=== PATIENT | female | born 1985 | race Two or more races ===

== ENCOUNTER 2020-09-22 11:35 | Inpatient (IN) | payer OTHER ==
[2020-09-22 16:08] LABS: BASO % 0.4 % (0-2.0); EOS % 1.2 % (0-4.5); HEMOGLOBIN 13.2 GM/dL (10.7-15.3); LYMPH % 22.6 % (8-40); MCH 28.3 pg (25.7-33.7); MEAN CELL VOLUME 85.7 fl (80-96); MEAN PLT VOLUME 9.8 fl (7.5-11.1); MONO % 6.3 % (3.8-10.2); NEUT % 69.5 % (42.8-82.8); PLATELET COUNT 215 K/MM3 (134-434); RBC 4.67 M/mm3 (3.60-5.2); WHITE BLOOD COUNT 10.2 K/mm3 (4.0-10.0)
[2020-09-22 16:22] LABS: INR 0.83 (0.83-1.09); PROTHROMBIN TIME (PATIENT) 10.3 SEC (9.7-13.0)
[2020-09-22 16:23] LABS: POTASSIUM 3.9 mmol/L (3.5-5.1)
[2020-09-22 16:26] LABS: BLOOD UREA NITROGEN 12.6 mg/dL (7-18); CALCIUM 9.4 mg/dL (8.5-10.1)
[2020-09-22 16:29] LABS: CREATININE 0.6 mg/dL (0.55-1.3)
[2020-09-22 17:10] VITALS: BMI 33.6
[2020-09-22] MEDS ORDERED: CITRIC ACID/SODIUM CITRATE 30 ML UNIT-DOSE CUP PO ONE (17:11)
[2020-09-22] MEDS ORDERED: ELECTROLYTE-148 SOLN 1,000 ML IV SCH (17:15)
[2020-09-22] MEDS ORDERED: ONDANSETRON 4 MG/2 ML VIAL IVPUSH PRN (17:20)
[2020-09-22] MEDS ORDERED: morphine SULFATE/PF 0.5 MG/ML (2cc Syringe - QUVA) ONE (17:39)
[2020-09-22] MEDS ORDERED: ceFAZolin SODIUM 1 GM VIAL ONE (18:13)
[2020-09-22] MEDS ORDERED: OXYTOCIN 10 UNITS/ML VIAL ONE (18:13)
[2020-09-22] MEDS ORDERED: SODIUM CHLORIDE 0.9% P/F 10 ML VIAL IJ ONE (18:13)
[2020-09-22] MEDS ORDERED: WITCH HAZEL 50% (TUCKS) 40 PAD/JAR PAD TP PRN (19:06)
[2020-09-22] MEDS ORDERED: BENZOCAINE 28 GM HEMORRHOIDAL OINTMENT PR PRN (19:06)
[2020-09-22] MEDS ORDERED: oxyCODONE HCL 5 MG TABLET PO PRN ×2 (19:06)
[2020-09-22] MEDS ORDERED: diphenhydrAMINE HCL 25 MG CAPSULE (FP) PO PRN (19:06)
[2020-09-22] MEDS ORDERED: BENZOCAINE 20% 57 GM BOTTLE TP PRN (19:06)
[2020-09-22] MEDS ORDERED: METHYLERGONOVINE MALEATE 0.2 MG/1 ML AMP IM PRN (19:06)
[2020-09-22] MEDS ORDERED: OXYTOCIN 20 UNITS in 0.9% NS 20 UNIT/1,000 ML INFUS.BAG IV SCH (19:15)
[2020-09-22 19:25] LABS: CORD HCO3 25.4 mmHg (20-29); CORD PCO2 75.2 mmHg (30-78); CORD pH 7.146 (7.14-7.44)
[2020-09-22 19:28] LABS: CORD BASE EXCESS -4.1 mmol/L (0-2); CORD PCO2 55.2 mmHg (30-78); CORD pH 7.256 (7.14-7.44)
[2020-09-22] MEDS ORDERED: OXYTOCIN 20 UNITS in 0.9% NS 20 UNIT/1,000 ML INFUS.BAG IV ONE (20:38)
[2020-09-23] MEDS: CEFAZOLIN 1 GM/D5W 1 GM/50 ML BAG IVPB SCH ×2 (01:45→09:28)
[2020-09-23] MEDS: IBUPROFEN 800 MG/8 ML IJ IVPB PRN ×2 (06:12→11:45)
[2020-09-23] MEDS: SIMETHICONE 80 MG TAB.CHEW (FP) PO PRN ×2 (06:18→17:26)
[2020-09-23] MEDS: ENOXAPARIN NA (PORCINE) 40 MG/0.4 ML DISP.SYRIN SQ SCH (09:30)
[2020-09-23] MEDS ORDERED: DIPHTH,PERTUSS(ACELL),TET 0.5 ML DISP.SYRIN IM ONE (10:00)
[2020-09-23] MEDS ORDERED: FLU VACCINE (FLULAVAL) PF 60 MCG/0.5 ML SYRINGE 2020-2021 IM ONE (10:00)
[2020-09-23] MEDS ORDERED: PNEUMOC 13-VAL CONJ-DIP CRM/PF 0.5 ML DISP.SYRIN IM ONE (10:00)
[2020-09-23] MEDS ORDERED: PNEUMOCOCCAL 23 VACCINE 0.5 ML VIAL IM ONE (11:00)
[2020-09-23 11:19] LABS: BASO % 0.4 % (0-2.0); EOS % 0.3 % (0-4.5); HEMATOCRIT 33.2 % (32.4-45.2); HEMOGLOBIN 10.9 GM/dL (10.7-15.3); LYMPH % 19.5 % (8-40); MCH 27.8 pg (25.7-33.7); MCHC 32.7 g/dl (32.0-36.0); MEAN CELL VOLUME 84.9 fl (80-96); MEAN PLT VOLUME 9.3 fl (7.5-11.1); MONO % 5.6 % (3.8-10.2); NEUT % 74.2 % (42.8-82.8); PLATELET COUNT 174 K/MM3 (134-434); RDW 13.6 % (11.6-15.6); WHITE BLOOD COUNT 11.7 K/mm3 (4.0-10.0)
[2020-09-23] MEDS: ACETAMINOPHEN 325 MG TABLET (FP) PO PRN (17:26)
[2020-09-23] MEDS: IBUPROFEN 600 MG TABLET (FP) PO PRN (17:26)
[2020-09-23] MEDS ORDERED: BISACODYL 10 MG SUPP.RECT PR PRN (19:06)
[2020-09-23] MEDS: DEXTROSE 5%-LACTATED RINGERS 1,000 ML IV SCH (19:30)
[2020-09-24] MEDS: IBUPROFEN 600 MG TABLET (FP) PO PRN ×5 (03:29→20:29)
[2020-09-24] MEDS: ACETAMINOPHEN 325 MG TABLET (FP) PO PRN ×4 (03:30→20:30)
[2020-09-24] MEDS: SIMETHICONE 80 MG TAB.CHEW (FP) PO PRN ×4 (03:31→20:29)
[2020-09-24] MEDS: ENOXAPARIN NA (PORCINE) 40 MG/0.4 ML DISP.SYRIN SQ SCH (09:46)
[2020-09-24] MEDS ORDERED: LORazepam 0.5 MG TABLET PO ONE (20:00)
[2020-09-24 20:14] LABS: HEMATOCRIT 35.3 % (32.4-45.2); HEMOGLOBIN 11.6 GM/dL (10.7-15.3); MCH 28.2 pg (25.7-33.7); MCHC 32.8 g/dl (32.0-36.0); MEAN CELL VOLUME 85.9 fl (80-96); MEAN PLT VOLUME 9.4 fl (7.5-11.1); PLATELET COUNT 211 K/MM3 (134-434); RBC 4.11 M/mm3 (3.60-5.2); RDW 14.1 % (11.6-15.6); WHITE BLOOD COUNT 11.8 K/mm3 (4.0-10.0)
[2020-09-24 20:25] LABS: CHLORIDE 109 mmol/L (98-107); POTASSIUM 4.1 mmol/L (3.5-5.1); SODIUM 140 mmol/L (136-145)
[2020-09-24 20:27] LABS: CALCIUM 8.5 mg/dL (8.5-10.1)
[2020-09-24] MEDS ORDERED: LORazepam 0.5 MG TABLET ONE (20:27)
[2020-09-24 20:28] LABS: ANION GAP 7 MMOL/L (8-16); BLOOD UREA NITROGEN 9.5 mg/dL (7-18); CO2 24 mmol/L (21-32); GLUCOSE,RANDOM 98 mg/dL (74-106)
[2020-09-24 20:31] LABS: CREATININE 0.6 mg/dL (0.55-1.3); PHOSPHOROUS 2.9 mg/dL (2.5-4.9)
[2020-09-24] MEDS ORDERED: SENNOSIDES/DOCUSATE COMBO (SENNA PLUS) TABLET (UD) PO PRN (22:00)
[2020-09-25] MEDS: IBUPROFEN 600 MG TABLET (FP) PO PRN ×3 (00:29→08:36)
[2020-09-25] MEDS: SIMETHICONE 80 MG TAB.CHEW (FP) PO PRN ×4 (00:30→12:41)
[2020-09-25] MEDS: ACETAMINOPHEN 325 MG TABLET (FP) PO PRN ×4 (00:30→12:40)
[2020-09-25 06:33] LABS: BASO % 0.4 % (0-2.0); EOS % 0.4 % (0-4.5); HEMATOCRIT 29.7 % (32.4-45.2); HEMOGLOBIN 9.8 GM/dL (10.7-15.3); LYMPH % 13.9 % (8-40); MCH 27.8 pg (25.7-33.7); MCHC 32.9 g/dl (32.0-36.0); MEAN CELL VOLUME 84.5 fl (80-96); MEAN PLT VOLUME 8.7 fl (7.5-11.1); NEUT % 79.3 % (42.8-82.8); PLATELET COUNT 181 K/MM3 (134-434); RBC 3.51 M/mm3 (3.60-5.2); RDW 13.9 % (11.6-15.6)
[2020-09-25] MEDS: ENOXAPARIN NA (PORCINE) 40 MG/0.4 ML DISP.SYRIN SQ SCH (10:10)
[2020-09-25 10:28] VITALS: BP 128/84; PULSE 100; TEMP 98.6
[2020-09-25] MEDS ORDERED: IBUPROFEN 600 MG TABLET (FP) PO PRN (11:57)
== END 2020-09-25 12:50 | disposition home or self-care (01) | DRG 540 ==
LOC: JDEL 11:35 → JLDR 15:00 → J3W 21:00
PROVIDERS: ADMIT Obstetrics & Gynecology; ATTEND Obstetrics & Gynecology
PROC: 10D00Z1 Extraction of Products of Conception, Low, Open Approach (ICD-10-PCS; principal; 2020-09-22)
DX: O41.03X0 Oligohydramnios, third trimester, not applicable or unspecified (principal); O36.5930 Maternal care for other known or suspected poor fetal growth, third trimester, not applicable or unspecified; O28.8 Other abnormal findings on antenatal screening of mother; O76 Abnormality in fetal heart rate and rhythm complicating labor and delivery; O77.0 Labor and delivery complicated by meconium in amniotic fluid; O99.345 Other mental disorders complicating the puerperium; F41.8 Other specified anxiety disorders; F41.0 Panic disorder [episodic paroxysmal anxiety]; Z3A.34 34 weeks gestation of pregnancy; Z37.0 Single live birth; Z88.2 Allergy status to sulfonamides
CPT/HCPCS: 36415; 36600; 80048; 82803; 83735; 84100; 84443; 84484; 85025; 85027; 85610; 85730; 86780; 86850; 86900; 86901; 88307-TC; 90715; 90732; 93005; 93010; 93970-TC; C9803; G0008; G0009; Q2036; U0003